=== PATIENT | male | born 1975 | race African-American/Black ===

== ENCOUNTER 2017-02-18 22:37 | Emergency (ER) | payer OTHER ==
[~2017-02-18] VITALS: Ht 175.3 cm; Wt 74.8 kg
[~2017-02-18 22:37] MED LIST: ATIVAN0.5 MG PO
[2017-02-18 22:46] VITALS: BP 139/84
== END 2017-02-19 00:03 | disposition admitted as inpatient to this hospital (09) ==
LOC: ERH 22:37
DX: R29.818 Other symptoms and signs involving the nervous system (principal)